=== PATIENT | male | born 1960 | race Caucasian/White ===

== ENCOUNTER 2020-07-11 05:53 | Day surgery (SDC) | payer BC ==
--- NOTE | 2020-07-08 15:31 | HP ---
DATE OF SURGERY: 07/11/2020 HISTORY OF PRESENT ILLNESS: The patient presents to the office in need of endoscopy. He has not had any prior colonoscopy in the past. He is reporting some upper right quadrant pain and epigastric pain, reports happens after eating spicy food. This is also worse when he eats a large meal. He denies any nausea, vomiting, diarrhea or rectal bleeding. PAST MEDICAL HISTORY: Arthritis, reflux. PAST SURGICAL HISTORY: Appendectomy. ALLERGIES: NKDA. MEDICATIONS: Omeprazole. FAMILY HISTORY: Dad had lung cancer. Mom had diabetes and heart disease. SOCIAL HISTORY: Smokes three-quarter pack a day. Denies alcohol. REVIEW OF SYSTEMS: CONSTITUTIONAL: Denies fever or chills. CHEST: Denies shortness of breath. CVS: Denies chest pain. ABDOMEN: Reports right upper quadrant and epigastric pain. Denies nausea, vomiting, diarrhea, constipation or rectal bleeding. INTEGUMENTARY: Negative. PHYSICAL EXAMINATION: GENERAL: No acute distress. CHEST: Nonlabored. No shortness of breath. CVS: Regular rate and rhythm. ABDOMEN: Soft, tender to palpation right upper quadrant epigastrium. EXTREMITIES: No edema. NEUROLOGIC: Alert. PSYCHIATRIC: Appropriate. IMPRESSION: Epigastric pain, right upper quadrant pain and screening colonoscopy. PLAN: EGD and colonoscopy with Dr. Alejandro Dominguez. As dictated by Lennie Hopkins NP.
[2020-07-11] MEDS ORDERED: Lactated Ringers 1,000 ML IV SCH (06:30)
[2020-07-11] MEDS ORDERED: DIPRIVAN 200 MG/20 ML IV ONE ×2 (08:28→08:43)
[2020-07-11] MEDS ORDERED: Versed 2 MG/2 ML Injection ONE (08:28)
[2020-07-11 09:33] VITALS: O2SAT 99
[2020-07-11 09:37] VITALS: BP 116/62; PULSE 67
--- NOTE | 2020-07-11 12:57 | OP ---
SURGERY DATE/TIME: 07/11/2020 0825 PREOPERATIVE DIAGNOSES: 1) Epigastric pain. 2) Lower unit screening. POSTOPERATIVE DIAGNOSES: 1) Epigastric pain. 2) Lower unit screening. PROCEDURES: 1) EGD with cold biopsy x1. 2) Colonoscopy complete to cecum. SURGEON: Alejandro Dominguez M.D. ANESTHESIA: MAC. COMPLICATIONS: None. CONDITION: Stable. INDICATION: A patient requiring evaluation. DESCRIPTION OF PROCEDURE: Taken to endoscopy. MAC sedation provided. Pharyngoesophageal junction normal. Vocal cords were normal. Larynx normal. Epiglottis normal. Esophagus cannulated. Esophagus normal down to gastroesophageal junction. A rim of esophagitis Grade 2. No hiatal hernia. The fundus normal. Body normal. In the antrum there was a mild antritis. 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 Pylorus slightly spastic but normal. Duodenal bulb was short but normal. Second portion normal. The scope withdrawn looped upon itself. Gastroesophageal junction satisfactory from below with no hiatal hernia. Anal digital examination satisfactory. Scope introduced. The scope advanced to the cecum. The colon was slightly spastic. The base of the cecum, ileocecal valve and appendiceal orifice normal. Ascending, hepatic, transverse, splenic normal. Descending slightly spastic. A little bit of stool here and there. Rectum normal. Anus normal. IMPRESSION: Normal examination, slightly limited from the prep and slightly limited from the spasm but otherwise normal. PLAN: Follow up in five years.
== END 2020-07-11 09:47 | disposition home or self-care (01) ==
LOC: SDC 05:53
PROVIDERS: ATTEND Surgery
DX: Z12.11 Encounter for screening for malignant neoplasm of colon (principal); R10.13 Epigastric pain; R10.11 Right upper quadrant pain; Z80.1 Family history of malignant neoplasm of trachea, bronchus and lung
CPT/HCPCS: J2250; J2704

== ENCOUNTER 2023-05-26 12:03 | Emergency (ER) | payer BC ==
[2023-05-26 12:19] VITALS: TEMP 98.2
[2023-05-26] MEDS ORDERED: Sodium Chloride 0.9% 1000 ML 1,000 ML IV STA (12:24)
--- NOTE | 2023-05-26 12:24 | ERPHSYRPT ---
- History of Present Illness Time Seen by Provider: 05/26/23 12:24 Historian: patient Exam Limitations: no limitations Patient Subjective Stated Complaint: pt here for pain to abd that radiates to right side, pain is chronic but worse that last 4 days now, Triage Nursing Assessment: pt alert, resp easy, walked in, skin w/d/p, has tenderness to right side of abd, right side of abd firm. Physician History: This is a 62-year-old white male patient of Dr. Mccain who presents to the emergency department with abdominal pain. It has been intermittent over the last 2 years. Has patient has had an appendectomy in the past but no other abdominal surgeries. He underwent an upper and lower endoscopy within the last 2 to 3 years without any abnormalities found. Patient has no prior CAT scan of the abdomen pelvis per his report. Patient's only medication is to treat gastroesophageal reflux disease. He has no known weight loss. There has been a change in his appetite. His appetite has been decreased in the last 4 days. Overall abdominal pain worsening in the last 2 weeks. Patient has not had hematemesis. Patient has not been passing blood rectally Timing/Duration: intermittent ( intermittent abdominal pain), worse (Worse in the last 2 weeks. Even worsening in the last 4 days.), other (Chronic) Quality: aching Abdominal Pain Onset Location: RUQ, RLQ, suprapubic Pain Radiation: no radiation Severity of Pain-Max: moderate Modifying Factors: Improves With: nothing Associated Symptoms: loss of appetite, No chest pain, No shortness of breath, No testicular pain Previous symptoms: same symptoms as today, no recent treatment Allergies/Adverse Reactions: No Known Drug Allergies Allergy (Verified 05/26/23 12:19) Home Medications: Omeprazole 40 mg PO BID 07/03/20 [History] Hx Influenza Vaccination/Date Given: No Hx Pneumococcal Vaccination/Date Given: No Immunizations Up to Date: Yes Travel Risk - International Travel Have you traveled outside of the country in past 3 weeks: No - Coronavirus Screening Are you exhibiting any of the following symptoms?: No Close contact with a COVID-19 positive Pt in past 14-21 Days: No - Vaccine Status Have you recieved a Covid-19 vaccination: No - Review of Systems Constitutional: No Symptoms Eyes: No Symptoms Ears, Nose, & Throat: No Symptoms Respiratory: No Symptoms Cardiac: No Symptoms Abdominal/Gastrointestinal: Abdominal Pain, Appetite Changes, No Nausea, No Vomiting, No Diarrhea Genitourinary Symptoms: No Symptoms Musculoskeletal: No Symptoms Skin: No Symptoms Neurological: No Symptoms Psychological: No Symptoms Endocrine: No Symptoms Hematologic/Lymphatic: No Symptoms Immunological/Allergic: No Symptoms All Other Systems: Reviewed and Negative - Past Medical History Pertinent Past Medical History: Yes Neurological History: No Pertinent History ENT History: No Pertinent History Cardiac History: No Pertinent History Respiratory History: No Pertinent History Endocrine Medical History: No Pertinent History Musculoskeletal History: Arthritis GI Medical History: GERD History: No Pertinent History Psycho-Social History: No Pertinent History Male Reproductive Disorders: No Pertinent History - Past Surgical History Past Surgical History: Yes Neuro Surgical History: No Pertinent History Cardiac: No Pertinent History Respiratory: No Pertinent History Gastrointestinal: Appendectomy Genitourinary: No Pertinent History Musculoskeletal: No Pertinent History Male Surgical History: No Pertinent History Other Surgical History: egd,colonscopy - Social History Smoking Status: Former smoker How long have you smoked: 45 years Exposure to second hand smoke: No Drug Use: none Patient Lives Alone: No - Nursing Vital Signs Nursing Vital Signs: Initial Vital Signs Temperature 98.2 F 05/26/23 12:18 Pulse Rate 75 05/26/23 12:18 Respiratory Rate 18 05/26/23 12:18 Blood Pressure 153/90 05/26/23 12:18 O2 Sat by Pulse Oximetry 98 05/26/23 12:18 Pain Scale Pain Intensity 5 - Physical Exam General Appearance: no apparent distress, alert, anxiety Eye Exam: PERRL/EOMI, eyes nml inspection Ears, Nose, Throat Exam: normal ENT inspection, moist mucous membranes Neck Exam: normal inspection, non-tender, supple, full range of motion Respiratory Exam: normal breath sounds, lungs clear, airway intact, No chest tenderness, No respiratory distress Cardiovascular Exam: regular rate/rhythm, normal heart sounds, normal peripheral pulses Gastrointestinal/Abdomen Exam: soft, normal bowel sounds, tenderness (Right side of abdomen to palpation), guarding (Right side of abdomen to palpation) Rectal Exam: not done Back Exam: normal inspection, normal range of motion, No CVA tenderness, No vertebral tenderness Extremity Exam: normal inspection, normal range of motion, pelvis stable Neurologic Exam: alert, oriented x 3, cooperative, system controller II-XII nml as tested, normal mood/affect, nml cerebellar function, nml station & gait, sensation nml Skin Exam: normal color, warm, dry Lymphatic Exam: No adenopathy SpO2 Interpretation: normal SpO2: 98 O2 Delivery: Room Air - Course Nursing assessment & vital signs reviewed: Yes Ordered Tests: Active Orders 24 hr Category Date Time Status IV Insertion STAT Care 05/26/23 12:24 Active ABDOMEN AND PELVIS W/0 CONTRAS [CT] Stat Exams 05/26/23 12:25 Completed AMYLASE Stat Lab 05/26/23 12:35 Completed CBC W DIFF Stat Lab 05/26/23 12:35 Completed CMP Stat Lab 05/26/23 12:35 Completed LIPASE Stat Lab 05/26/23 12:35 Completed Lactic Acid Stat Lab 05/26/23 12:24 Completed UA W/RFX UR CULTURE Stat Lab 05/26/23 12:25 Ordered Medication Summary Discontinued Medications Generic Name Dose Route Start Last Admin Trade Name Freq PRN Reason Stop Dose Admin Methylprednisolone Sodium 0 mg 05/26/23 14:30 Succinate 125 mg/ Sterile IV 05/26/23 14:31 Water 2 ml STAT ONE Hydromorphone HCl 1 mg 05/26/23 12:35 05/26/23 12:39 Hydromorphone 1 Mg/1ml Inj IV 05/26/23 12:36 1 mg STAT ONE Administration Hydromorphone HCl Confirm 05/26/23 12:37 Hydromorphone 1 Mg/1ml Inj Administered 05/26/23 12:38 Dose 1 mg .ROUTE .STK-MED ONE Sodium Chloride 1,000 mls @ 999 mls/hr 05/26/23 12:24 05/26/23 13:51 Sodium Chloride 0.9% 1000 Ml IV 05/26/23 13:24 Infused .Q1H1M STA Infusion Sodium Chloride Confirm 05/26/23 12:37 Sodium Chloride 0.9% 1000 Ml Administered 05/26/23 12:38 Dose 1,000 mls @ ud .ROUTE .STK-MED ONE Levofloxacin 500 mg 05/26/23 14:30 Levofloxacin 500 Mg Tablet PO 05/26/23 14:31 STAT ONE Metronidazole 500 mg 05/26/23 14:30 Metronidazole 500 Mg Tablet PO 05/26/23 14:31 STAT ONE Ondansetron HCl 4 mg 05/26/23 12:35 05/26/23 12:40 Ondansetron Hcl 4 Mg/2 Ml Vial IV 05/26/23 12:36 4 mg STAT ONE Administration Ondansetron HCl Confirm 05/26/23 12:37 Ondansetron Hcl 4 Mg/2 Ml Vial Administered 05/26/23 12:38 Dose 4 mg .ROUTE .STK-MED ONE Lab/Rad Data: Laboratory Result Diagrams 05/26/23 12:35 05/26/23 12:35 Laboratory Results 05/26/23 05/26/23 05/26/23 Range/Units 12:35 12:35 12:24 WBC 10.3 (4.0-10.5) x10^3/uL RBC 4.27 (4.1-5.6) x10^6/uL Hgb 12.8 (12.5-18.0) g/dL Hct 39.4 L (42-50) % MCV 92.3 (78-100) fL MCH 30.0 (26-32) pg MCHC 32.5 (32-36) g/dL RDW 12.0 (11.5-14.0) % Plt Count 385 (150-450) x10^3/uL MPV 8.8 (7.5-11.0) fL Gran % 69.9 H (36.0-66.0) % Immature Gran % (Auto) 0.6 H (0.00-0.4) % Nucleat RBC Rel Count 0.0 (0.00-0.1) % Eos # (Auto) 0.04 (0-0.5) x10^3/uL Immature Gran # (Auto) 0.06 H (0.00-0.03) x10^3u/L Absolute Lymphs (auto) 2.05 (1.0-4.6) x10^3/uL Absolute Monos (auto) 0.91 (0.0-1.3) x10^3/uL Absolute Nucleated RBC 0.00 (0.00-0.01) x10^3u/L Lymphocytes % 19.8 L (24.0-44.0) % Monocytes % 8.8 (0.0-12.0) % Eosinophils % 0.4 (0.00-5.0) % Basophils % 0.5 (0.0-0.4) % Absolute Granulocytes 7.22 H (1.4-6.9) x10^3/uL Basophils # 0.05 (0-0.4) x10^3/uL Sodium 137 (137-145) mmol/L Potassium 3.8 (3.5-5.1) mmol/L Chloride 103 (98-107) mmol/L Carbon Dioxide 24 (22-30) mmol/L Anion Gap 14.1 (5-15) MEQ/L BUN 11 (9-20) mg/dL Creatinine 1.01 (0.66-1.25) mg/dL Estimated GFR > 60.0 ML/MIN Glucose 101 (74-106) mg/dL Lactic Acid 0.9 (0.4-2.0) Calcium 9.1 (8.4-10.2) mg/dL Total Bilirubin 0.80 (0.2-1.3) mg/dL AST 26 (17-59) U/L ALT 31 (0-50) U/L Alkaline Phosphatase 136 H (38-126) U/L Serum Total Protein 8.3 H (6.3-8.2) g/dL Albumin 4.3 (3.5-5.0) g/dL Amylase 74 (30-110) U/L Lipase 81 (23-300) U/L - Progress Progress Note: 05/26/23 13:29 This patient's medical issue is 1 of moderate complexity. The level complexity in the work-up performed is based on review of the patient's past medical history, review the patient's medication list, review the patient drug allergy list, history of present illness and physical findings on examination. The work-up in this patient includes a urinalysis, placement of intravenous line, infusion 1 L normal saline solution, infusion 1 mg of Dilaudid, infusion of 4 mg Zofran, amylase, lipase, CBC, CMP and CT scan of the abdomen pelvis without contrast. 05/26/23 14:46 Review the laboratory results and interpreted them. There is no acute, emergent finding on the lab results. The CT scan of the abdomen pelvis without contrast was interpreted by the radiologist and I reviewed the interpretation. There is bowel wall thickening at the terminal ileum and ileocecal junction favoring Crohn's disease. There is irregular soft tissue masslike opacity posterior and contiguous with cecum. This could be due to an incomplete appendectomy, Meckel's diverticulitis, epiploic appendagitis or malignancy (carcinoid tumor) Counseled pt/family regarding: lab results, diagnosis, rad results Medical Desision Making - Independent Historian Additional History obtained from: Spouse - Diagnostic Testing Diagnostic test were ordered, analyzed, and reviewed by me: Yes Radiological Interpretation: Reviewed by me, Teleradiologist Report - Risk of complications The pt has a mod risk of morbidity or mortality based on: Need for prescription drug management - Departure Departure Disposition: Home Clinical Impression: Crohn's disease, Mass of cecum Condition: Stable Critical Care Time: No Referrals: GLYNN MCCAIN MD [Primary Care Provider] - Follow up/PCP as directed Additional Instructions: Drink plenty of clear liquids before advancing diet. Take your antibiotics and steroids as prescribed. Follow-up with your primary care provider tomorrow, 05/27/2023 to make arranges for follow-up appointment for further evaluation m anagement and referral to general surgery as indicated. Prescriptions: Hydrocodone/APAP 5/325 [Geraldine 5/325 mg] 1 each PO Q8H PRN PRN #10 tablet MDD 3 PRN Reason: Pain Ciprofloxacin [Cipro 500 MG] 500 mg PO BID #14 tablet Prednisone 10 mg [Deltasone 10 mg] 10 mg PO TID #12 tablet Metronidazole 500 mg [Flagyl 500 MG] 500 mg PO TID #21 tablet
[2023-05-26] MEDS ORDERED: Hydromorphone 1 mg/ml Injection IV ONE (12:35)
[2023-05-26] MEDS ORDERED: Zofran 4 MG/2 ML VIAL IV ONE (12:35)
[2023-05-26] MEDS ORDERED: Zofran 4 MG/2 ML VIAL ONE (12:37)
[2023-05-26] MEDS ORDERED: Sodium Chloride 0.9% 1000 ML 1,000 ML ONE (12:37)
[2023-05-26] MEDS ORDERED: Hydromorphone 1 mg/ml Injection ONE (12:37)
[2023-05-26 12:39] LABS: Absolute Neutrophil Ct (ANC) 7.22 x10^3/uL (1.4-6.9); BASOPHIL % 0.5 % (0.0-0.4); Basophil (Absolute #) 0.05 x10^3/uL (0-0.4); Eosinophil % 0.4 % (0.00-5.0); Eosinophil (Absolute #) 0.04 x10^3/uL (0-0.5); Hematocrit 39.4 % (42-50); Hemoglobin 12.8 g/dL (12.5-18.0); IMMATURE GRAN # 0.06 x10^3u/L (0.00-0.03); IMMATURE GRAN % 0.6 % (0.00-0.4); Lymphocyte (Absolute #) 2.05 x10^3/uL (1.0-4.6); Lymphocytes % 19.8 % (24.0-44.0); Mean Cell Volume 92.3 fL (78-100); Mean Corpuscular Hgb Concent. 32.5 g/dL (32-36); Mean Platelet Volume 8.8 fL (7.5-11.0); Monocyte (Absolute #) 0.91 x10^3/uL (0.0-1.3); Monocytes % 8.8 % (0.0-12.0); Neutrophil % 69.9 % (36.0-66.0); Platelet Count 385 x10^3/uL (150-450); Red Blood Count 4.27 x10^6/uL (4.1-5.6); White Blood Count 10.3 x10^3/uL (4.0-10.5)
[2023-05-26 12:52] LABS: ALBUMIN 4.3 g/dL (3.5-5.0); ALKALINE PHOSPHATASE 136 U/L (38-126); AMYLASE 74 U/L (30-110); ANION GAP 14.1 MEQ/L (5-15); BLOOD UREA NITROGEN 11 mg/dL (9-20); CHLORIDE 103 mmol/L (98-107); Calcium 9.1 mg/dL (8.4-10.2); Carbon Dioxide 24 mmol/L (22-30); Creatinine 1 1.01 mg/dL (0.66-1.25); EST GLOMERULAR FILTRATION RATE > 60.0 ML/MIN; Glucose 101 mg/dL (74-106); LIPASE 81 U/L (23-300); Potassium 3.8 mmol/L (3.5-5.1); SGOT/AST 26 U/L (17-59); SGPT/ALT 31 U/L (0-50); SODIUM 137 mmol/L (137-145); Total Protein 8.3 g/dL (6.3-8.2)
[2023-05-26 14:12] VITALS: PULSE 76
--- NOTE | 2023-05-26 14:26 | XRAY ---
Indication: Abdomen pain 2 years. Multiple contiguous axial images obtained through the abdomen and pelvis without contrast. Comparison: None Lung bases clear with incidental right lower lobe calcified granuloma. Heart not enlarged. Noncontrasted stomach and bowel loops nonobstructed with scattered sigmoid diverticulosis. Appendectomy reported. Terminal ileum and ileocecal junction demonstrate bowel wall thickening favoring Crohn's disease. There is also a retrocecal irregular shaped soft tissue masslike opacity contiguous with the cecum measuring at least 3.1 x 3.8 x 3.8 cm with stranding and 2 tiny air bubbles presumed inflammatory/infectious. Lack of contrast precludes further characterization. Partial differential includes extension Crohn's disease, recurrent appendicitis due to incomplete appendectomy, Meckel's diverticulitis, epiploic appendagitis, and malignancy including carcinoid tumor. No free air. Incidental nonobstructing right renal punctate calculus and splenic calcified granuloma. Remaining liver, gallbladder, pancreas, spleen, adrenal glands, kidneys, ureters, and bladder are unremarkable for noncontrast exam. Mild scattered aortoiliac calcifications without AAA. Osseous structures intact with minimal degenerative changes throughout the spine. Impression: 1. Bowel wall thickening terminal ileum and ileocecal junction favoring Crohn's disease. 2. Irregular soft tissue masslike opacity posterior and contiguous with cecum as detailed. Partial differential is offered above. 3. Incidental nonobstructing right renal punctate calculus, sigmoid diverticulosis, and old granulomatous disease.
[2023-05-26] MEDS ORDERED: Levofloxacin 500 MG Tablet PO ONE (14:30)
[2023-05-26] MEDS ORDERED: Flagyl 500 MG PO ONE (14:30)
[2023-05-26] MEDS ORDERED: solu-MEDROL 125 MG, Sterile H2O 10 ml 2 ML IV ONE ×2 (14:30)
[2023-05-26] MEDS ORDERED: Sterile H2O 10 ml IJ ONE (14:57)
[2023-05-26] MEDS ORDERED: Levofloxacin 500 MG Tablet ONE (14:57)
[2023-05-26] MEDS ORDERED: solu-MEDROL ONE (14:57)
[2023-05-26] MEDS ORDERED: Flagyl 500 MG ONE (14:57)
[2023-05-26 15:07] VITALS: BP 99/73; RESP 16; O2SAT 95
== END 2023-05-26 15:27 | disposition home or self-care (01) ==
LOC: ED 12:03
DX: K50.00 Crohn's disease of small intestine without complications (principal); K63.89 Other specified diseases of intestine; R10.9 Unspecified abdominal pain; Z79.52 Long term (current) use of systemic steroids; Z79.891 Long term (current) use of opiate analgesic; Z79.899 Other long term (current) drug therapy; Z28.310 Unvaccinated for COVID-19
CPT/HCPCS: 36000; 36415; 74176; 80053; 82150; 83605; 83690; 85025; 96360; 96374; 96375; 99284; J1170; J2405; J2930; A9270-GY

== ENCOUNTER 2023-06-04 06:30 | Emergency (ER) | payer BC ==
[2023-06-04 06:52] VITALS: RESP 18; TEMP 97.3
[2023-06-04] MEDS ORDERED: solu-MEDROL 125 MG, Sterile H2O 10 ml 2 ML IV ONE ×2 (07:08)
[2023-06-04] MEDS ORDERED: Hydromorphone 1 mg/ml Injection IV ONE (07:08)
[2023-06-04] MEDS ORDERED: Zofran 4 MG/2 ML VIAL IV ONE (07:08)
--- NOTE | 2023-06-04 07:08 | ERPHSYRPT ---
- History of Present Illness Time Seen by Provider: 06/04/23 07:07 Historian: patient, family Exam Limitations: no limitations Patient Subjective Stated Complaint: pt states that after he finished his medications the pain in his stomach came back. pt states that he is unable to get into the specialist until 06/15 and can not handle the pain anymore. Triage Nursing Assessment: pt ambulated into the er; pt is axo x4; c/o abd pain; pt is holding LLQ, pt is grimacing; pt states 10/10 pain to LLQ; abd is round, soft, tender to LLQ; hyperactive bowel sounds in all quads; pt denies N/V/D; pt states last BM was today; mucus membranes pink and moist; skin PDW; no respiratory distress present; hypertension Physician History: This is a 62-year-old white male patient of Dr. Mccain and presents with right lower quadrant abdominal pain that has been intermittent prior to his evaluation here in the emergency department on 05/26/2023. Patient has had an appendectomy in the past. On the 05/26/2023 visit he was diagnosed with findings on his CT that was consistent with Crohn's disease and associated cecal mass. He is scheduled to see his GI specialist on 06/15/2023. Patient denies chest pain, patient denies shortness of breath, patient denies nausea vomiting and diarrhea. Patient has not had a fever. Patient received a prescription for Elwin 5/325 yesterday, 06/03/2023 from his primary care physician. This does not seem to be helping his pain. He is here to obtain injection of pain medicine and obtain recommendations for pain control. Patient has been tolerating a diet. Additional, independent history obtained from the patient's spouse Timing/Duration: intermittent, worse Quality: aching, cramping Abdominal Pain Onset Location: RLQ Pain Radiation: no radiation Severity of Pain-Max: moderate Severity of Pain-Current: moderate Modifying Factors: Improves With: nothing Associated Symptoms: denies symptoms Previous symptoms: same symptoms as today, recently seen, recently treated Allergies/Adverse Reactions: No Known Drug Allergies Allergy (Verified 06/04/23 06:39) Home Medications: Omeprazole 40 mg PO DAILY 06/04/23 [History] Hx Tetanus, Diphtheria Vaccination/Date Given: No (unknown) Hx Influenza Vaccination/Date Given: No Hx Pneumococcal Vaccination/Date Given: No Travel Risk - International Travel Have you traveled outside of the country in past 3 weeks: No - Coronavirus Screening Are you exhibiting any of the following symptoms?: No Close contact with a COVID-19 positive Pt in past 14-21 Days: No - Vaccine Status Have you recieved a Covid-19 vaccination: No - Review of Systems Constitutional: No Symptoms Eyes: No Symptoms Ears, Nose, & Throat: No Symptoms Respiratory: No Symptoms Cardiac: No Symptoms Abdominal/Gastrointestinal: Abdominal Pain, No Nausea, No Vomiting, No Diarrhea, No Appetite Changes Genitourinary Symptoms: No Symptoms Musculoskeletal: No Symptoms Skin: No Symptoms Neurological: No Symptoms Psychological: No Symptoms - Past Medical History Pertinent Past Medical History: Yes Neurological History: No Pertinent History ENT History: No Pertinent History Cardiac History: No Pertinent History Respiratory History: No Pertinent History Endocrine Medical History: No Pertinent History Musculoskeletal History: Arthritis GI Medical History: GERD History: No Pertinent History Psycho-Social History: No Pertinent History Male Reproductive Disorders: No Pertinent History - Past Surgical History Past Surgical History: Yes Neuro Surgical History: No Pertinent History Cardiac: No Pertinent History Respiratory: No Pertinent History Gastrointestinal: Appendectomy Genitourinary: No Pertinent History Musculoskeletal: No Pertinent History Male Surgical History: No Pertinent History Other Surgical History: egd,colonscopy - Social History Smoking Status: Former smoker How long have you smoked: 45 years Exposure to second hand smoke: No Drug Use: none Patient Lives Alone: No - Nursing Vital Signs Nursing Vital Signs: Initial Vital Signs Pulse Rate 72 06/04/23 06:39 Blood Pressure 159/96 06/04/23 06:39 O2 Sat by Pulse Oximetry 95 06/04/23 06:39 Pain Scale Pain Intensity 10 - Physical Exam General Appearance: no apparent distress, alert, anxiety Eye Exam: PERRL/EOMI, eyes nml inspection Ears, Nose, Throat Exam: normal ENT inspection Neck Exam: normal inspection, non-tender, supple, full range of motion Respiratory Exam: normal breath sounds, lungs clear, airway intact, No chest tenderness, No respiratory distress Cardiovascular Exam: regular rate/rhythm, normal heart sounds, normal peripheral pulses Gastrointestinal/Abdomen Exam: soft, normal bowel sounds, tenderness (Right lower quadrant to palpation), No guarding, No rebound Rectal Exam: not done Back Exam: normal inspection, normal range of motion, No CVA tenderness, No vertebral tenderness SpO2: 97 - Course Nursing assessment & vital signs reviewed: Yes Ordered Tests: Active Orders 24 hr Category Date Time Status IV Insertion STAT Care 06/04/23 07:08 Active Medication Summary Discontinued Medications Generic Name Dose Route Start Last Admin Trade Name Andres PRN Reason Stop Dose Admin Methylprednisolone Sodium 0 mg 06/04/23 07:08 06/04/23 07:14 Succinate 125 mg/ Sterile IV 06/04/23 07:09 125 mg Water 2 ml STAT ONE Administration Hydromorphone HCl 1 mg 06/04/23 07:08 06/04/23 07:15 Hydromorphone 1 Mg/1ml Inj IV 06/04/23 07:09 1 mg STAT ONE Administration Hydromorphone HCl Confirm 06/04/23 07:12 Hydromorphone 1 Mg/1ml Inj Administered 06/04/23 07:13 Dose 1 mg .ROUTE .STK-MED ONE Methylprednisolone Sodium Succinate Confirm 06/04/23 07:12 Methylprednis Sod Succ 125 Mg/2 Ml Vial Administered 06/04/23 07:13 Dose 125 mg .ROUTE .STK-MED ONE Ondansetron HCl 4 mg 06/04/23 07:08 06/04/23 07:13 Ondansetron Hcl 4 Mg/2 Ml Vial IV 06/04/23 07:09 4 mg STAT ONE Administration Ondansetron HCl Confirm 06/04/23 07:12 Ondansetron Hcl 4 Mg/2 Ml Vial Administered 06/04/23 07:13 Dose 4 mg .ROUTE .STK-MED ONE Sterile Water Confirm 06/04/23 07:12 Water For Injection,Sterile 10 Ml Vial Administered 06/04/23 07:13 Dose 10 ml IJ .STK-MED ONE - Progress Progress: improved, re-examined Progress Note: 06/04/23 07:38 This patient's medical issue is 1 of low complexity. The level of complexity in the work-up performed is based on review of the patient's past medical history, review the patient's medication list, review the patient's drug allergy list, history of present illness and physical findings on examination. No laboratory or radiographic studies are necessary in this patient work-up today. We are just providing him with improved pain control and recommendations for outpatient pain control. Counseled pt/family regarding: diagnosis, need for follow-up Medical Desision Making - Independent Historian Additional History obtained from: Spouse - Risk of complications The pt has a mod risk of morbidity or mortality based on: Need for prescription drug management - Departure Departure Disposition: Home Clinical Impression: Right lower quadrant abdominal pain Condition: Stable Critical Care Time: No Referrals: GLYNN MCCAIN MD [Primary Care Provider] - Follow up/PCP as directed Additional Instructions: Take your medications as prescribed. Call your primary care provider this morning, 06/04/2023, to make arrangements for follow-up appointment and for further management of your pain as an outpatient. Call your GI specialist today, 06/04/2023, to see if you can move your appointment to an earlier 1. Forms: Work/School Release Form Prescriptions: Prednisone 10 mg [Deltasone 10 mg] 10 mg PO TID #12 tablet
[2023-06-04] MEDS ORDERED: Sterile H2O 10 ml IJ ONE (07:12)
[2023-06-04] MEDS ORDERED: Zofran 4 MG/2 ML VIAL ONE (07:12)
[2023-06-04] MEDS ORDERED: Hydromorphone 1 mg/ml Injection ONE (07:12)
[2023-06-04] MEDS ORDERED: solu-MEDROL ONE (07:12)
[2023-06-04 07:47] VITALS: O2SAT 94
[2023-06-04 07:56] VITALS: BP 148/96; PULSE 63
== END 2023-06-04 07:56 | disposition home or self-care (01) ==
LOC: ED 06:30
DX: R10.31 Right lower quadrant pain (principal); Z79.52 Long term (current) use of systemic steroids; Z79.899 Other long term (current) drug therapy; Z28.310 Unvaccinated for COVID-19
CPT/HCPCS: 36000; 96374; 96375; 99283; J1170; J2405; J2930

== ENCOUNTER 2023-06-14 00:40 | Emergency (ER) | payer BC ==
[2023-06-14] MEDS ORDERED: Zofran 4 MG/2 ML VIAL IV ONE (01:04)
[2023-06-14] MEDS ORDERED: Sodium Chloride 0.9% 1000 ML 1,000 ML IV STA (01:04)
[2023-06-14] MEDS ORDERED: MORPHINE SULFATE 4 MG INJ IV ONE (01:04)
--- NOTE | 2023-06-14 01:09 | ERPHSYRPT ---
- History of Present Illness Time Seen by Provider: 06/14/23 00:46 Historian: patient, family Exam Limitations: no limitations Physician History: 62-year-old male presented in ER with chief complaint of abdominal pain all over especially on the right side moderate to severe sharp without any significant aggravating or relieving factors. Denies associated nausea vomiting or diarrhea. Patient reports symptoms been going on for the last 3 weeks and has been evaluated in this ER twice with a CT finding suggesting Crohn's disease and is scheduled to see GI tomorrow. Patient has recently finished course of steroids. No fever or chills reported. Allergies/Adverse Reactions: No Known Drug Allergies Allergy (Verified 06/14/23 02:19) Home Medications: Omeprazole 40 mg PO DAILY 06/04/23 [History] Hx Tetanus, Diphtheria Vaccination/Date Given: No (unknown) Hx Influenza Vaccination/Date Given: No Hx Pneumococcal Vaccination/Date Given: No Travel Risk - Vaccine Status Have you recieved a Covid-19 vaccination: No - Review of Systems Constitutional: No Symptoms Eyes: No Symptoms Ears, Nose, & Throat: No Symptoms Respiratory: No Symptoms Cardiac: No Symptoms Abdominal/Gastrointestinal: Abdominal Pain Genitourinary Symptoms: No Symptoms Musculoskeletal: No Symptoms Skin: No Symptoms Neurological: No Symptoms Psychological: No Symptoms Endocrine: No Symptoms Hematologic/Lymphatic: No Symptoms - Past Medical History Pertinent Past Medical History: Yes Neurological History: No Pertinent History ENT History: No Pertinent History Cardiac History: No Pertinent History Respiratory History: No Pertinent History Endocrine Medical History: No Pertinent History Musculoskeletal History: Arthritis GI Medical History: GERD History: No Pertinent History Psycho-Social History: No Pertinent History Male Reproductive Disorders: No Pertinent History - Past Surgical History Past Surgical History: Yes Neuro Surgical History: No Pertinent History Cardiac: No Pertinent History Respiratory: No Pertinent History Gastrointestinal: Appendectomy Genitourinary: No Pertinent History Musculoskeletal: No Pertinent History Male Surgical History: No Pertinent History Other Surgical History: egd,colonscopy - Social History Smoking Status: Former smoker How long have you smoked: 45 years Exposure to second hand smoke: No Drug Use: none Patient Lives Alone: No - Nursing Vital Signs Nursing Vital Signs: Initial Vital Signs Temperature 97.3 F 06/14/23 00:47 Pulse Rate 82 06/14/23 00:47 Respiratory Rate 18 06/14/23 00:47 Blood Pressure 137/87 06/14/23 00:47 O2 Sat by Pulse Oximetry 98 06/14/23 00:47 Pain Scale Pain Intensity 6 - Physical Exam General Appearance: no apparent distress, alert Eye Exam: PERRL/EOMI Ears, Nose, Throat Exam: normal ENT inspection Neck Exam: normal inspection, supple, full range of motion Respiratory Exam: normal breath sounds, lungs clear Cardiovascular Exam: regular rate/rhythm, normal heart sounds Gastrointestinal/Abdomen Exam: soft, normal bowel sounds, tenderness (Right upper quadrant/right lower quadrant/suprapubic and left lower quadrant area with some guarding in the right lower quadrant.) Extremity Exam: normal inspection, normal range of motion Neurologic Exam: alert, oriented x 3, cooperative Skin Exam: normal color SpO2 Interpretation: normal SpO2: 97 O2 Delivery: Room Air Ordered Tests: Active Orders 24 hr Category Date Time Status IV Insertion STAT Care 06/14/23 01:04 Active NPO (ED) STAT Care 06/14/23 01:04 Active ABDOMEN AND PELVIS W CONTRAST [CT] Stat Exams 06/14/23 01:04 Completed CBC W DIFF Stat Lab 06/14/23 01:16 Completed CMP Stat Lab 06/14/23 01:16 Completed LIPASE Stat Lab 06/14/23 01:16 Completed Manual Differential NC Stat Lab 06/14/23 01:16 Completed UA W/RFX UR CULTURE Stat Lab 06/14/23 01:04 Ordered Medication Summary Generic Name Dose Route Start Last Admin Trade Name Freq PRN Reason Stop Dose Admin Vancomycin HCl 2 gm in 400 mls @ 133.333 mls/hr 06/14/23 03:09 06/14/23 03:52 Vancomycin 2 Gram/400 Ml Bag IV 06/14/23 06:08 133 ml/hr STAT ONE 133 mls/hr Administration Sodium Chloride 1,000 mls @ 125 mls/hr 06/14/23 03:15 06/14/23 03:17 Sodium Chloride 0.9% 1000 Ml IV 07/14/23 03:14 125 mls/hr .Q8H EMILY Administration Discontinued Medications Generic Name Dose Route Start Last Admin Trade Name Freq PRN Reason Stop Dose Admin Hydromorphone HCl Confirm 06/14/23 02:29 Hydromorphone 1 Mg/1ml Inj Administered 06/14/23 02:30 Dose 1 mg .ROUTE .STK-MED ONE Sodium Chloride 1,000 mls @ 999 mls/hr 06/14/23 01:04 06/14/23 03:27 Sodium Chloride 0.9% 1000 Ml IV 06/14/23 02:04 Infused .Q1H1M STA Infusion Sodium Chloride Confirm 06/14/23 01:11 Sodium Chloride 0.9% 1000 Ml Administered 06/14/23 01:12 Dose 1,000 mls @ ud .ROUTE .STK-MED ONE Piperacillin Sod/Tazobactam 100 mls @ 200 mls/hr 06/14/23 03:06 06/14/23 03:17 Sod 3.375 gm/ Sodium Chloride IV 06/14/23 03:35 200 mls/hr STAT ONE Administration Sodium Chloride Confirm 06/14/23 03:11 Sodium Chloride 100ml Mini-Bag Plus Administered 06/14/23 03:12 Dose 100 mls @ ud IV .STK-MED ONE Vancomycin HCl Confirm 06/14/23 03:50 Vancomycin 2 Gram/400 Ml Bag Administered 06/14/23 03:51 Dose 2 gm in 400 mls @ ud IV .STK-MED ONE Morphine Sulfate 4 mg 06/14/23 01:04 06/14/23 01:12 Morphine Sulfate 4 Mg/Ml Injection IV 06/14/23 01:05 4 mg STAT ONE Administration Morphine Sulfate Confirm 06/14/23 01:11 Morphine Sulfate 4 Mg/Ml Injection Administered 06/14/23 01:12 Dose 4 mg .ROUTE .STK-MED ONE Ondansetron HCl 4 mg 06/14/23 01:04 06/14/23 01:12 Ondansetron Hcl 4 Mg/2 Ml Vial IV 06/14/23 01:05 4 mg STAT ONE Administration Ondansetron HCl Confirm 06/14/23 01:11 Ondansetron Hcl 4 Mg/2 Ml Vial Administered 06/14/23 01:12 Dose 4 mg .ROUTE .STK-MED ONE Piperacillin Sod/Tazobactam Sod Confirm 06/14/23 03:11 Piperacillin/Tazobactam Sodium 3.375 Gm Vial Administered 06/14/23 03:12 Dose 3.375 gm IV .STK-MED ONE Lab/Rad Data: Laboratory Result Diagrams 06/14/23 01:16 06/14/23 01:16 Laboratory Results 06/14/23 06/14/23 Range/Units 01:16 01:16 WBC 24.6 H (4.0-10.5) x10^3/uL RBC 4.59 (4.1-5.6) x10^6/uL Hgb 13.6 (12.5-18.0) g/dL Hct 42.4 (42-50) % MCV 92.4 (78-100) fL MCH 29.6 (26-32) pg MCHC 32.1 (32-36) g/dL RDW 13.3 (11.5-14.0) % Plt Count 430 (150-450) x10^3/uL MPV 9.4 (7.5-11.0) fL Segmented Neutrophils 88 H (36.-66.) % Band Neutrophils 3 H (0.0-2.0) % Lymphocytes (Manual) 5 L (24-44) % Monocytes (Manual) 4 (0.0-12.0) % Platelet Estimate NORMAL (NORMAL) RBC Morphology NORMAL Sodium 135 L (137-145) mmol/L Potassium 4.0 (3.5-5.1) mmol/L Chloride 98 (98-107) mmol/L Carbon Dioxide 25 (22-30) mmol/L Anion Gap 15.7 H (5-15) MEQ/L BUN 22 H (9-20) mg/dL Creatinine 0.84 (0.66-1.25) mg/dL Estimated GFR 99.2 ML/MIN Glucose 113 H (74-106) mg/dL Calcium 9.6 (8.4-10.2) mg/dL Total Bilirubin 2.10 H (0.2-1.3) mg/dL AST 46 (17-59) U/L ALT 257 H (0-50) U/L Alkaline Phosphatase 226 H (38-126) U/L Serum Total Protein 8.1 (6.3-8.2) g/dL Albumin 3.8 (3.5-5.0) g/dL Lipase 90 (23-300) U/L - Progress Progress: improved, pain not gone completely, re-examined Progress Note: 06/14/23 01:08 62-year-old male presented in ER with chief complaint of abdominal pain all over especially on the right side moderate to severe sharp without any significant aggravating or relieving factors. Denies associated nausea vomiting or diarrhea. Patient reports symptoms been going on for the last 3 weeks and has been evaluated in this ER twice with a CT finding suggesting Crohn's disease and is scheduled to see GI tomorrow. Patient has recently finished course of steroids. No fever or chills reported. For given fluids and symptomatic treatment for pain we will do acute abdomen work-up including repeating CT abdomen pelvis with contrast. 06/14/23 03:56 Patient is feeling better on reevaluation after pain medications. Work-up showed white count of 24, fairly unremarkable chemistries. CT abdomen pelvis with contrast showed large iliopsoas abscess measuring 9 x 7 x 5 cm, patient is started on broad-spectrum antibiotics Zosyn and vancomycin. I have discussed with Dr. Roberth Dominguez, recommended transfer to [place] for IR drainage. I have spoken with Dr. Johnson general surgery [facility] who also agreed with patient needing IR drainage. Discussed with Dr. Chavez and patient is accepted for transfer. I have discussed the results of work-up and plan of care with patient and family who understand and agree with it. Discussed with : Alisson Counseled pt/family regarding: lab results, diagnosis, rad results Medical Desision Making - Discussion of managment Care discussed with:: specialist (Dr. Johnson trauma/general surgeon [facility], Dr. Roberth Dominguez general surgeon [facility] Dr. Chavez at [facility] ER) Reviewed:: Test results Agreed on:: Treatment plan - Diagnostic Testing Diagnostic test were ordered, analyzed, and reviewed by me: Yes Radiological Interpretation: Reviewed by me, Teleradiologist Report - Risk of complications The pt has a high risk of morbidity or mortality based on: Need for major surgery in patient with known risk factors, Decision regarding hospitilization or escalation of hosp level of care - Departure Departure Disposition: Transfer Clinical Impression: Iliopsoas abscess on right Condition: Stable Critical Care Time: No Referrals: GLYNN MCCAIN MD [Primary Care Provider] - Follow up/PCP as directed
[2023-06-14 01:10] VITALS: TEMP 97.3
[2023-06-14] MEDS ORDERED: MORPHINE SULFATE 4 MG INJ ONE (01:11)
[2023-06-14] MEDS ORDERED: Zofran 4 MG/2 ML VIAL ONE (01:11)
[2023-06-14] MEDS ORDERED: Sodium Chloride 0.9% 1000 ML 1,000 ML ONE ×2 (01:11→03:11)
[2023-06-14 01:19] LABS: Hematocrit 42.4 % (42-50); Hemoglobin 13.6 g/dL (12.5-18.0); Mean Cell Volume 92.4 fL (78-100); Mean Corpuscular Hemoglobin 29.6 pg (26-32); Mean Corpuscular Hgb Concent. 32.1 g/dL (32-36); Mean Platelet Volume 9.4 fL (7.5-11.0); Platelet Count 430 x10^3/uL (150-450); Red Blood Count 4.59 x10^6/uL (4.1-5.6); Red Cell Distribution Width 13.3 % (11.5-14.0); White Blood Count 24.6 x10^3/uL (4.0-10.5)
[2023-06-14 01:32] LABS: ALBUMIN 3.8 g/dL (3.5-5.0); ANION GAP 15.7 MEQ/L (5-15); BILIRUBIN,TOTAL 2.1 mg/dL (0.2-1.3); Calcium 9.6 mg/dL (8.4-10.2); Creatinine 1 0.84 mg/dL (0.66-1.25); EST GLOMERULAR FILTRATION RATE 99.2 ML/MIN; Total Protein 8.1 g/dL (6.3-8.2)
[2023-06-14] MEDS ORDERED: Hydromorphone 1 mg/ml Injection ONE ×2 (02:29→04:04)
[2023-06-14] MEDS ORDERED: Hydromorphone 1 mg/ml Injection IV ONE (02:49)
--- NOTE | 2023-06-14 02:51 | XRAY ---
CLINICAL HISTORY:right side abd pain COMPARISON:05/26/2023 TECHNIQUE:Continuous axial CT of the abdomen and pelvis was performed with axial images as well as sagittal and coronal reconstruction images with intravenous contrast. FINDINGS: There is interval progression is seen in ill-defined large abscess collection within the right iliopsoas muscle with larger iliacus competent. It measures 9.3 x 7.5 x 5.7 cm in craniocaudal, transverse, and AP dimensions respectively. The mentioned abscess and increasing air loculi are seem to be extending towards higher fibers of the psoas muscles retroperitoneally and indenting the paraspinal muscles on the right side. Significant adjacent fat stranding and thickening of lateroconal fascia and fascia gerota's is also visualized with multiple tiny air loculi. The lower pole of the right kidney seems to be indented by tracking psoas abscess at its midpart. Minimal right perinephric fatty stranding is visualized mainly at its lower part. Vertebral bodies and intervertebral disc spaces appear grossly unremarkable. No other gross bony abnormality seen on the present scan except mild lumbar spondylosis. Reactionary thickening of the ileocecal junction and appendix are seen as well. Prominent mesenteric mesenteric lymphadenopathy is redemonstrated. Interval development of bilateral minimal pleural effusion and lower lobe airspace infiltrates are seen more pronounced on the right side. The liver is normal in size, and morphology and appears unremarkable with no intrahepatic or extrahepatic bile duct dilation. The gallbladder appeared unremarkable and doesnot show stones, wall thickening or pericholecystic inflammatory changes or fluid. Unremarkable appearing pancreas. No pancreatic mass or ductal dilatation is seen. Unremarkable appearing spleen. The adrenal glands are normal. The kidneys appear unremarkable with no stones, cysts masses or hydronephrosis. The ureters are normal with no stones. The urinary bladder is unremarkable with no stones. Unremarkable appearing stomach and duodenum. Small Bowel and colon are non-distended. Uncomplicated colonic diverticulosis seen. No evidence of pneumoperitoneum or larger ascites. The abdominal aorta shows atherosclerotic changes. No evidence of an aneurysm or dissection. IVC is normal. IMPRESSION: 1. Interval progression is seen in an ill-defined large abscess collection measuring 9.3 x 7.5 x 5.7 cm within the right iliopsoas muscle with larger iliacus competent. It has larger air loculi and seems to be extending towards higher fibers of the psoas muscles retroperitoneally and indenting the paraspinal muscles on the right side, lower pole of the right kidney causing significant mesenteric fatty stranding and thickening of lateroconal fascia and fascia gerota's. 2. Reactionary thickening of the ileocecal junction and appendix are seen as well. 3. Prominent mesenteric mesenteric lymphadenopathy is also redemonstrated. 4. Bilateral minimal pleural effusion and lower lobe airspace infiltrates are more pronounced on the right side. [facility] ER was called at [phone] at 01:46 AM THIRD OFFICER, 06/14/2023 and the results are verbally communicated with Billy Simms Electronically Signed by: Ghazala Owusu MD. (06/14/2023 01:50:03 THIRD OFFICER)
[2023-06-14 02:53] LABS: BAND 3 % (0.0-2.0); Lymphocytes 5 % (24-44); Monocyte 4 % (0.0-12.0); Neutrophils 88 % (36.-66.); Platelet Estimate NORMAL (NORMAL); Total Cells Counted 100
[2023-06-14] MEDS ORDERED: PIPERACILLIN/TAZOBACTAM 3.375 GM in Sodium Chloride 100ML MINI-BAG PLUS 100 ML IV ONE (03:06)
[2023-06-14] MEDS ORDERED: VANCOMYCIN 2 GRAM/400 ML BAG 2 GM/400 ML PIGGYBACK IV ONE ×2 (03:09→03:50)
[2023-06-14] MEDS ORDERED: PIPERACILLIN/TAZOBACTAM IV ONE (03:11)
[2023-06-14] MEDS ORDERED: Sodium Chloride 100ML MINI-BAG PLUS 100 ML IV ONE (03:11)
[2023-06-14] MEDS ORDERED: Sodium Chloride 0.9% 1000 ML 1,000 ML IV SCH (03:15)
[2023-06-14 04:09] VITALS: BP 121/81; PULSE 76; RESP 16; O2SAT 93
== END 2023-06-14 04:35 | disposition short-term general hospital (02) ==
LOC: ED 00:40
DX: M60.051 Infective myositis, right thigh (principal); R10.31 Right lower quadrant pain; R10.2 Pelvic and perineal pain; R10.32 Left lower quadrant pain; R10.11 Right upper quadrant pain; Z28.310 Unvaccinated for COVID-19
CPT/HCPCS: 36000; 36415; 74177; 80053; 83690; 85025; 96360; 96365; 96368; 96374; 96375; 99285; J1170; J2270; J2405; J3370

== ENCOUNTER 2023-07-04 21:57 | Emergency (ER) | payer BC ==
[2023-07-04 22:17] VITALS: TEMP 98.7
--- NOTE | 2023-07-04 22:30 | ERPHSYRPT ---
- History of Present Illness Time Seen by Provider: 07/04/23 22:22 Historian: patient Exam Limitations: no limitations Patient Subjective Stated Complaint: pt states he woke up with pain below his lt ribcage. pain is worsew ith inhalation. denies radiation. Triage Nursing Assessment: pt alert and oriented, answers questions approp. pt ambulates into room with steady gait noted. respirations nonlabored. mild crackles noted to lt base. skin warm and dry. heart rate 104 sinus tach on monitor. Physician History: 64 years old male with past medical history of psoas abdominal abscess that was diagnosed and treated 3 weeks ago currently on IV antibiotics through a PICC line. The patient is presenting to the emergency room accompanied by his with a chief complaint of left sided lower chest pain that started at around 9 PM when he woke up from sleep. The patient states that his chest pain is sharp, worse when he takes a deep breath. He is denying any shortness of breath, no abdominal pain nausea or vomiting. He has no history of coronary artery disease no history of hypertension or diabetes. Quality: sharpness Chest Pain Radiation: no radiation Severity of Pain-Max: moderate Severity of Pain-Current: moderate Aspirin Treatment Today: no aspirin today Allergies/Adverse Reactions: No Known Drug Allergies Allergy (Verified 06/14/23 02:19) Home Medications: Antibiotic-Iv 07/04/23 [History] Antifungal- Po 07/04/23 [History] Hx Tetanus, Diphtheria Vaccination/Date Given: No (unknown) Hx Influenza Vaccination/Date Given: No Hx Pneumococcal Vaccination/Date Given: No Travel Risk - International Travel Have you traveled outside of the country in past 3 weeks: No - Coronavirus Screening Are you exhibiting any of the following symptoms?: No Close contact with a COVID-19 positive Pt in past 14-21 Days: Yes - Vaccine Status Have you recieved a Covid-19 vaccination: No - Review of Systems Constitutional: Weakness Eyes: No Symptoms Ears, Nose, & Throat: No Symptoms Respiratory: No Cough, No Dyspnea Cardiac: Chest Pain Abdominal/Gastrointestinal: No Abdominal Pain, No Nausea, No Vomiting, No Diarrhea Genitourinary Symptoms: No Dysuria Musculoskeletal: No Back Pain, No Neck Pain Skin: No Rash Neurological: No Dizziness, No Focal Weakness, No Sensory Changes Psychological: No Symptoms Endocrine: No Symptoms All Other Systems: Reviewed and Negative - Past Medical History Pertinent Past Medical History: Yes Neurological History: No Pertinent History ENT History: No Pertinent History Cardiac History: No Pertinent History Respiratory History: No Pertinent History Endocrine Medical History: No Pertinent History Musculoskeletal History: Arthritis GI Medical History: GERD History: No Pertinent History Psycho-Social History: No Pertinent History Male Reproductive Disorders: No Pertinent History Other Medical History: possible new diagnosis of chrohns - Past Surgical History Past Surgical History: Yes Neuro Surgical History: No Pertinent History Cardiac: No Pertinent History Respiratory: No Pertinent History Gastrointestinal: Appendectomy Genitourinary: No Pertinent History Musculoskeletal: No Pertinent History Male Surgical History: No Pertinent History Other Surgical History: egd,colonscopy - Social History Smoking Status: Former smoker How long have you smoked: 45 years Exposure to second hand smoke: No Drug Use: none Patient Lives Alone: No - Nursing Vital Signs Nursing Vital Signs: Initial Vital Signs Temperature 98.7 F 07/04/23 22:00 Pulse Rate 99 H 07/04/23 22:00 Respiratory Rate 18 07/04/23 22:00 Blood Pressure 119/76 07/04/23 22:00 O2 Sat by Pulse Oximetry 96 07/04/23 22:00 Pain Scale Pain Intensity 8 - Physical Exam General Appearance: no apparent distress, alert Eye Exam: PERRL/EOMI, eyes nml inspection Ears, Nose, Throat Exam: normal ENT inspection, moist mucous membranes Neck Exam: normal inspection, non-tender, supple, full range of motion Respiratory Exam: normal breath sounds, chest tenderness, lungs clear, No respir atory distress Cardiovascular Exam: regular rate/rhythm, normal heart sounds Gastrointestinal/Abdomen Exam: soft, tenderness, other (Right-sided abdominal tenderness.Draining tube, RLQ , draining thick pus X 3 CC), No mass Male Genitalia Exam: normal genitalia Back Exam: normal inspection, No CVA tenderness, No vertebral tenderness Extremity Exam: normal inspection, normal range of motion Neurologic Exam: alert, oriented x 3, cooperative, normal mood/affect, sensation nml, No motor deficits Skin Exam: normal color, warm, dry SpO2: 96 - Course Nursing assessment & vital signs reviewed: Yes EKG Interpreted by Me: RATE (97), Sinus Rhythm, NORMAL QRS, NORMAL ST-T Ordered Tests: Active Orders 24 hr Category Date Time Status Parimutuel Ticket Cashier STAT Care 07/04/23 22:24 Active EKG-ER Only STAT Care 07/04/23 22:22 Active IV Insertion STAT Care 07/04/23 22:22 Active CHEST 1 VIEW (PORTABLE) Stat Exams 07/04/23 22:23 Taken CHEST WITH CONTRAST [CT] Stat Exams 07/04/23 23:03 Completed CBC W DIFF Stat Lab 07/04/23 22:36 Completed CMP Stat Lab 07/04/23 22:36 Completed D-DIMER QUANTITATIVE Stat Lab 07/04/23 22:36 Completed PROTIME WITH INR Stat Lab 07/04/23 22:36 Completed PTT Stat Lab 07/04/23 22:36 Completed TROPONIN Q4H Lab 07/04/23 22:36 Completed TROPONIN Q4H Lab 07/05/23 02:30 Ordered TROPONIN Q4H Lab 07/05/23 06:30 Ordered Medication Summary Discontinued Medications Generic Name Dose Route Start Last Admin Trade Name Freq PRN Reason Stop Dose Admin Hydromorphone HCl 1 mg 07/04/23 22:53 07/04/23 23:31 Hydromorphone 1 Mg/1ml Inj IV 07/04/23 22:54 1 mg STAT ONE Administration Hydromorphone HCl Confirm 07/04/23 23:30 Hydromorphone 1 Mg/1ml Inj Administered 07/04/23 23:31 Dose 1 mg .ROUTE .STK-MED ONE Lab/Rad Data: Laboratory Result Diagrams 07/04/23 22:36 07/04/23 22:36 Laboratory Results 07/04/23 07/04/23 07/04/23 Range/Units 22:36 22:36 22:36 WBC (4.0-10.5) x10^3/uL RBC (4.1-5.6) x10^6/uL Hgb (12.5-18.0) g/dL Hct (42-50) % MCV (78-100) fL MCH (26-32) pg MCHC (32-36) g/dL RDW (11.5-14.0) % Plt Count (150-450) x10^3/uL MPV (7.5-11.0) fL Gran % (36.0-66.0) % Immature Gran % (Auto) (0.00-0.4) % Nucleat RBC Rel Count (0.00-0.1) % Eos # (Auto) (0-0.5) x10^3/uL Immature Gran # (Auto) (0.00-0.03) x10^3u/L Absolute Lymphs (auto) (1.0-4.6) x10^3/uL Absolute Monos (auto) (0.0-1.3) x10^3/uL Absolute Nucleated RBC (0.00-0.01) x10^3u/L Lymphocytes % (24.0-44.0) % Monocytes % (0.0-12.0) % Eosinophils % (0.00-5.0) % Basophils % (0.0-0.4) % Absolute Granulocytes (1.4-6.9) x10^3/uL Basophils # (0-0.4) x10^3/uL PT 11.1 (9.4-12.5) SECONDS INR 1.02 (0.8-3.0) APTT 28.6 (25.1-36.5) SECONDS D-Dimer 5.79 H* (0.0-0.50) mg/L Sodium 133 L (137-145) mmol/L Potassium 4.0 (3.5-5.1) mmol/L Chloride 100 (98-107) mmol/L Carbon Dioxide 23 (22-30) mmol/L Anion Gap 14.5 (5-15) MEQ/L BUN 7 L (9-20) mg/dL Creatinine 0.72 (0.66-1.25) mg/dL Estimated GFR 103.3 ML/MIN Glucose 103 (74-106) mg/dL Calcium 9.3 (8.4-10.2) mg/dL Total Bilirubin 0.50 (0.2-1.3) mg/dL AST 31 (17-59) U/L ALT 24 (0-50) U/L Alkaline Phosphatase 125 (38-126) U/L Troponin I < 0.012 (0.000-0.034) ng/mL Serum Total Protein 7.1 (6.3-8.2) g/dL Albumin 3.1 L (3.5-5.0) g/dL 07/04/ Range/Units 22:36 WBC 11.3 H (4.0-10.5) x10^3/uL RBC 3.70 L (4.1-5.6) x10^6/uL Hgb 10.5 L (12.5-18.0) g/dL Hct 36.6 L (42-50) % MCV 98.9 (78-100) fL MCH 28.4 (26-32) pg MCHC 28.7 L (32-36) g/dL RDW 13.3 (11.5-14.0) % Plt Count 496 H (150-450) x10^3/uL MPV 9.2 (7.5-11.0) fL Gran % 60.7 (36.0-66.0) % Immature Gran % (Auto) 2.4 H (0.00-0.4) % Nucleat RBC Rel Count 0.0 (0.00-0.1) % Eos # (Auto) 0.09 (0-0.5) x10^3/uL Immature Gran # (Auto) 0.27 H (0.00-0.03) x10^3u/L Absolute Lymphs (auto) 2.96 (1.0-4.6) x10^3/uL Absolute Monos (auto) 0.97 (0.0-1.3) x10^3/uL Absolute Nucleated RBC 0.00 (0.00-0.01) x10^3u/L Lymphocytes % 26.2 (24.0-44.0) % Monocytes % 8.6 (0.0-12.0) % Eosinophils % 0.8 (0.00-5.0) % Basophils % 1.3 (0.0-0.4) % Absolute Granulocytes 6.86 (1.4-6.9) x10^3/uL Basophils # 0.15 (0-0.4) x10^3/uL PT (9.4-12.5) SECONDS INR (0.8-3.0) APTT (25.1-36.5) SECONDS D-Dimer (0.0-0.50) mg/L Sodium (137-145) mmol/L Potassium (3.5-5.1) mmol/L Chloride (98-107) mmol/L Carbon Dioxide (22-30) mmol/L Anion Gap (5-15) MEQ/L BUN (9-20) mg/dL Creatinine (0.66-1.25) mg/dL Estimated GFR ML/MIN Glucose (74-106) mg/dL Calcium (8.4-10.2) mg/dL Total Bilirubin (0.2-1.3) mg/dL AST (17-59) U/L ALT (0-50) U/L Alkaline Phosphatase (38-126) U/L Troponin I (0.000-0.034) ng/mL Serum Total Protein (6.3-8.2) g/dL Albumin (3.5-5.0) g/dL - Progress Progress: improved Air Movement: good Progress Note: 64 years old male with past medical history of psoas abdominal abscess that was diagnosed and treated 3 weeks ago currently on IV antibiotics through a PICC line. The patient is presenting to the emergency room accompanied by his with a chief complaint of left sided lower chest pain that started at around 9 PM when he woke up from sleep. The patient states that his chest pain is worse when he takes a deep breath. He is denying any shortness of breath, no abdominal pain nausea or vomiting. He has no history of coronary artery disease no history of hypertension or diabetes. Emergency room course and medical decision making. On arrival the patient had an EKG done which revealed sinus rhythm at a rate of [address] segment elevation or depression. For the pain he will be given Dilaudid 1 mg IV. Check CBC, CMP, troponin, D-dimer and a portable chest x-ray. 07/04/23 22:52 07/04/23 23:04 The patient D-dimer is elevated at 5.8. Normal Troponin, 0.012 Will order a CTA of the chest rule out PE. 07/05/23 00:41 CTA of the chest revealed no evidence of pulmonary embolism, mild emphysematous changes, mild pleural effusion thickening of both lung lobes. The patient is feeling much better his left-sided pleuritic/musculoskeletal chest pain is almost completely resolved. He will be discharged home accompanied by his . He does have oxycodone tablets that he can take for the pain. He needs to follow-up with his family physician in 2 to 3 days. Follow-up as needed for any worsening symptoms. Continue his IV antibiotics and oral Diflucan as well Blood Culture(s) Obtained: No Antibiotics given: No Counseled pt/family regarding: lab results, diagnosis, need for follow-up, rad results - Departure Departure Disposition: Home Clinical Impression: Chest pain, pleuritic Condition: Stable Critical Care Time: No Referrals: GLYNN MCCAIN MD [Primary Care Provider] - Follow up/PCP as directed Instructions: Chest Pain (DC) Additional Instructions: Rest Continue Present Medications Follow up with family MD in 2-3 days Follow up as needed for any worsening symptoms.
[2023-07-04 22:42] LABS: Absolute Neutrophil Ct (ANC) 6.86 x10^3/uL (1.4-6.9); BASOPHIL % 1.3 % (0.0-0.4); Basophil (Absolute #) 0.15 x10^3/uL (0-0.4); Eosinophil % 0.8 % (0.00-5.0); Eosinophil (Absolute #) 0.09 x10^3/uL (0-0.5); Hematocrit 36.6 % (42-50); Hemoglobin 10.5 g/dL (12.5-18.0); IMMATURE GRAN # 0.27 x10^3u/L (0.00-0.03); IMMATURE GRAN % 2.4 % (0.00-0.4); Lymphocyte (Absolute #) 2.96 x10^3/uL (1.0-4.6); Lymphocytes % 26.2 % (24.0-44.0); Mean Cell Volume 98.9 fL (78-100); Mean Corpuscular Hemoglobin 28.4 pg (26-32); Mean Corpuscular Hgb Concent. 28.7 g/dL (32-36); Mean Platelet Volume 9.2 fL (7.5-11.0); Monocyte (Absolute #) 0.97 x10^3/uL (0.0-1.3); Monocytes % 8.6 % (0.0-12.0); Neutrophil % 60.7 % (36.0-66.0); Platelet Count 496 x10^3/uL (150-450); Red Cell Distribution Width 13.3 % (11.5-14.0); White Blood Count 11.3 x10^3/uL (4.0-10.5)
[2023-07-04 22:48] LABS: ALBUMIN 3.1 g/dL (3.5-5.0); ANION GAP 14.5 MEQ/L (5-15); BILIRUBIN,TOTAL 0.5 mg/dL (0.2-1.3); Calcium 9.3 mg/dL (8.4-10.2); Creatinine 1 0.72 mg/dL (0.66-1.25); EST GLOMERULAR FILTRATION RATE 103.3 ML/MIN; Total Protein 7.1 g/dL (6.3-8.2)
[2023-07-04] MEDS ORDERED: Hydromorphone 1 mg/ml Injection IV ONE (22:53)
[2023-07-04 22:55] LABS: INR 1.02 (0.8-3.0); PROTIME 11.1 SECONDS (9.4-12.5); PTT 28.6 SECONDS (25.1-36.5)
[2023-07-04 23:00] LABS: D-DIMER QUANTITATIVE 5.79 mg/L (0.0-0.50)
[2023-07-04] MEDS ORDERED: Hydromorphone 1 mg/ml Injection ONE (23:30)
[2023-07-04 23:40] VITALS: RESP 19
--- NOTE | 2023-07-05 00:07 | XRAY ---
CLINICAL HISTORY:Pulmonary Embolism COMPARISON:None. TECHNIQUE:Axial sections of CT chest angiogram were obtained after administration of intravenous contrast. Coronal and sagittal multiplanar reconstructions were obtained along with the Maximum Intensity Pixel (MIP) technique. FINDINGS: Normal main pulmonary artery and the left and right main pulmonary trunks. No detected pulmonary embolism. Heart size is normal, and there is no pericardial effusion. Normal ascending aorta, descending aorta and aortic arch. Mild emphysematous changes. Mild pleural effusion/thickening of both lower lung lobes with peripheral reticulations. Vertebral spondylotic changes. IMPRESSION: 1. No evidence of pulmonary embolism. 2. Mild emphysematous changes. 3. Mild pleural effusion/thickening of both lower lung lobes with peripheral reticulations. Electronically Signed by: Ghazala Owusu MD. (07/05/2023 00:02:55 EST)
[2023-07-05 00:40] VITALS: O2SAT 96
[2023-07-05 01:14] VITALS: BP 103/70; PULSE 96
--- NOTE | 2023-07-05 07:21 | XRAY ---
Indication: Chest pain. Comparison: None Portable chest inflated and clear. Heart and mediastinal structures within normal limits. Bony thorax intact. Impression: Nonacute chest.
== END 2023-07-05 01:05 | disposition home or self-care (01) ==
LOC: ED 21:57
DX: R07.81 Pleurodynia (principal); Z79.899 Other long term (current) drug therapy; Z28.310 Unvaccinated for COVID-19
CPT/HCPCS: 36415; 71045; 71260; 80053; 84484; 85025; 85379; 85610; 85730; 93005; 93041; 96374; 99284; J1170